=== PATIENT | male | born 1955 | race Two or more races ===

== ENCOUNTER 2022-03-13 05:27 | Emergency (ER) | payer OTHER ==
[~2022-03-13] VITALS: Ht 167.6 cm; Wt 63.0 kg
== END 2022-03-13 09:46 | disposition home or self-care (01) ==
LOC: ER 05:27
DX: R33.9 Retention of urine, unspecified (principal)

== ENCOUNTER 2022-03-23 12:54 | Emergency (ER) | payer OTHER ==
[~2022-03-23] VITALS: Ht 165.1 cm; Wt 72.6 kg
[2022-03-23] MEDS ORDERED: COZAAR25 MG (13:39)
[2022-03-23] MEDS ORDERED: LIPITOR40 M1 PO (13:39)
== END 2022-03-23 16:45 | disposition home or self-care (01) ==
LOC: ER 12:54
DX: N40.0 Benign prostatic hyperplasia without lower urinary tract symptoms (principal)